=== PATIENT | male | born 1945 | race African-American/Black ===

== ENCOUNTER 2018-08-17 13:54 | Emergency (ER) | payer MEDICARE, OTHER ==
[2018-08-17 14:08] VITALS: BP 147/98; PULSE 82; TEMP 98.3; BMI 24.8
--- NOTE | 2018-08-17 14:18 | PDOC ---
Attending Attestation - Resident Resident Name: RemingtonOlamide - HPI HPI: 08/17/18 15:24 Pt presents to the ED complaining of a one month history of constipation. Patient is able to have a bowel movement after taking senna, but is unable to have a BM without it. Symptoms began after starting a multi vitamin with iron. Patient denies nausea or vomiting or fever. Tolerating PO without difficulty. - Physicial Exam PE: 08/17/18 15:29 Agree with resident exam. PAtient is alert and oriented and in no acute distress. Abdomen is non tender, non distended, without guarding or rebound. - Medical Decision Making 08/17/18 15:33 Pt presents to the ED complaining of chronic constipation for one month. No new complaints. Came to the ED for a second opinion. Will treat with metamucil and miralax and discharge home with follow up with his PMD.
--- NOTE | 2018-08-17 15:19 | PDOC ---
History of Present Illness - General Chief Complaint: Constipation Stated Complaint: CONSTIPATED Time Seen by Provider: 08/17/18 14:18 - History of Present Illness Initial Comments: Radha Cifuentes is a 73yo man with a PMH of HTN who presents with constipation for the past month. Mr Cifuentes reports that previously, he used to have a regular bowel movement every other day. He had started taking a multivitamin with iron supplement at home and noticed the constipation shortly afterwards. His gave him senna tea a few times, though it is unclear how often he actually took senna as she states that she "didn't exactly give it to him." However, he did take docusate 100mg a few times over the past week with 2-3 bowel movements after taking the medication. He has not consistently taken the docusate, however. Mr Cifuentes denies any nausea, vomiting, bloating, or abdominal pain. His stool has been soft. He has not noticed any black or tarry stool, diarrhea, or blood. He has not had any rectal pain or pain with bowel movements. He additionally denies fevers, chills, previous abdominal surgeries, inability to tolerate PO, or urinary symptoms. He reports a healthy diet though usually has a cup or less of water per day and does not generally drink coffee, soda, or tea. He did see his PMD last Tuesday and was told to stop taking the iron supplement, which he has since done, but the PMD did not recommend any medications to help with his constipation. Past History - Past Medical History Allergies/Adverse Reactions: Allergies Allergy/AdvReac Type Severity Reaction Status Date / Time No Known Allergies Allergy Verified 08/17/18 14:05 Home Medications: Ambulatory Orders Polyethylene Glycol 3350 [Miralax (For Bowel Prep) -] 17 gm PO DAILY #1 bottle 08/17/18 COPD: No - Immunization History Immunization Up to Date: Yes - Suicide/Smoking/Psychosocial Hx Smoking History: Never smoked Hx Alcohol Use: No Drug/Substance Use Hx: No Substance Use Type: None Review of Systems - Review of Systems Comments:: General: No fevers, no chills, no weight or appetite change, no malaise HEENT: No changes in vision, no changes in hearing, no congestion, no sore throat CV: No chest pain, no palpitations, no LE edema Pulm: No SOB, no cough, no wheezing GI: No nausea or vomiting, +constipation, no melena, no hematochezia : No frequency, no urgency, no dysuria Musc: No back pain, no joint swelling, no recent injury Skin: No rash, no lesions, no erythema Endo: No excessive thirst, no heat/cold intolerance Heme: No unusual bruising or bleeding, no swollen glands Neuro: No syncope, no numbness/tingling, no focal weakness Vasc: No claudication Psych: No recent change in mood, no SI or HI *Physical Exam - Vital Signs Last Vital Signs Temp Pulse Resp BP Pulse Ox 98.3 F 82 16 147/98 100 08/17/18 14:06 08/17/18 14:06 08/17/18 14:06 08/17/18 14:06 08/17/18 14:06 - Physical Exam Comments: General: Comfortable, no acute distress HEENT: PERRL, EOMI, MMM, voice normal, normal neck ROM, no LAD Cards: RRR, no murmur appreciated Pulm: Comfortable on room air, clear to auscultation bilaterally Abd: Soft, nontender, nondistended. No palpable masses. : No CVA tenderness Rectal: Normal tone, no blood noted, no perianal lesions. Soft stool palpated in vault. Ext: Atraumatic. No LE edema. ROM intact. Strength 5/5 and equal bilaterally Vasc: Extremities WWP. Palpable radial and pedal pulses bilaterally Skin: Normal color, no rashes or lesions Neuro: A&Ox3, CN grossly intact, normal speech, motor/sensory grossly intact and symmetric Psych: Mood appropriate to situation Moderate Sedation - Procedure Monitoring Vital Signs: Procedure Monitoring Vital Signs Temperature 98.3 F 08/17/18 14:06 Pulse Rate 82 08/17/18 14:06 Respiratory Rate 16 08/17/18 14:06 Blood Pressure 147/98 08/17/18 14:06 O2 Sat by Pulse Oximetry (%) 100 08/17/18 14:06 Medical Decision Making - Medical Decision Making 08/17/18 15:14 Radha Cifuentes is a 73yo man with a PMH of HTN who presents with one month of constipation that occurred after he started taking a multivitamin with extra iron. He denies rectal bleeding, melena, abdominal pain, nausea/vomiting, inability to tolerate PO, or prior abdominal surgery. - Benign exam - Constipation most likely secondary to iron supplementation. He has already stopped taking it - Mr Cifuentes reports having BM when he has taken docusate, though he has taken this inconsistently - Recommending daily Metamucil. Will prescribe Miralax to take if there is no improvement in symptoms - Has a colonoscopy scheduled. Encouraged to complete the colonoscopy - Should follow up with his PMD. Discussed with Mr Cifuentes and his . They both state understanding and agreement with this plan. Discussed with Dr Dillon. Olamide Macedo PGY1 *DC/Admit/Observation/Transfer Diagnosis at time of Disposition: Constipation Qualifiers: Constipation type: unspecified constipation type Qualified Code(s): K59.00 - Constipation, unspecified - Discharge Dispostion Disposition: HOME Condition at time of disposition: Stable Decision to Admit order: No - Prescriptions Prescriptions: Polyethylene Glycol 3350 [Miralax (For Bowel Prep) -] 17 gm PO DAILY #1 bottle - Referrals Referrals: ON STAFF,NOT [Non Staff, Medical] - - Patient Instructions Printed Discharge Instructions: DI for Constipation Additional Instructions: Discharge Instructions: You were seen in the emergency department for constipation over the past month. This is most likely due to the iron supplements you were taking at home, but you will still need to be evaluated by GI at your scheduled colonoscopy appointment. Home Care: - You should start taking a fiber supplement at home. You may buy Metamucil over the counter and use it twice per day until you are having regular bowel movements. After that, continue to take it once daily. - You have been prescribed Miralax as well. This is a mild laxative. You may take this once or twice daily if the Metamucil does not produce a bowel movement within the next 2-3 days - Drink plenty of water at home. Aim for about 8 cups of water per day (about 4 bottles) - Follow up with your regular doctor within the next week Follow Up: - Make an appointment to see your regular doctor within the next week - Go to your already scheduled colonoscopy appointment - Seek immediate medical care if you have continued severe constipation, abdominal pain or bloating, nausea/vomiting, or are unable to take food or liquids by mouth. - Post Discharge Activity
== END 2018-08-17 16:24 | disposition home or self-care (01) ==
LOC: JER 13:54
DX: K59.00 Constipation, unspecified (principal); I10 Essential (primary) hypertension
CPT/HCPCS: 99282-25